=== PATIENT | female | born 1955 | race Caucasian/White ===

== ENCOUNTER 2024-01-09 11:49 | Emergency (ER) | payer MEDICARE, OTHER, SELFPAY ==
[2024-01-09 11:53] VITALS: BP 141/90; PULSE 81; TEMP 36.7; O2SAT 97; BMI 29.5
--- NOTE | 2024-01-09 13:09 | ED.GENADUL1 ---
HPI HPI - General Adult General Chief complaint: Eye Problems Stated complaint: BLURRED VISION Time Seen by Provider: 01/09/24 13:00 Source: patient Mode of arrival: walk-in Limitations: no limitations History of Present Illness HPI narrative: Patient is having left eye visual changes seeing squiggly lines, intermittent black floaters and black spots. No loss of vision, no pain to the left eye. No headache. No strokelike signs or symptoms. Patient symptoms started around 1:30 PM yesterday while she was at a [employer]. Patient denies any type of trauma. Patient has mild headache. No chest pain, shortness of breath, nausea, vomiting, no other strokelike signs or symptoms. All systems are negative except as noted/marked. All systems reviewed and otherwise negative. Nurses note and vital signs reviewed and patient is not hypoxic. General: The patient appears well and in no apparent distress. Patient is resting comfortably on cart. Patient is not toxic, lethargic, or listless Skin: Warm, dry, no pallor noted. There is no rash noted. No petechiae, purpura. Head: Normocephalic, atraumatic; Patient has no midline or paracervical tenderness to palpation.Patient has no tenderness to palpation to bilateral frontal maxillary sinus. Eye: Normal conjunctiva, no drainage, EOMI. PERRL. Patient had her right eye covered, and patient states that she is seeing squiggly lines in different spots and small floaters with the left eye, patient has no acute visual field defect to the top or bottom or any other quadrant. With her left eye covered, patient has normal vision to the right eye, no vision changes.Patient has no loss of vision, blurred vision, or double vision. Ears, Nose, Mouth, and Throat: oral mucosa is moist. Nares patent. Mouth without vesicles. Cardiovascular: Regular Rate and Rhythm, no murmur, gallop, rub Respiratory: Patient is in no distress, no accessory muscle use, lungs are clear to auscultation, no wheezing, rales or rhonchi Back: non-tender, GI: no tenderness Musculoskeletal: Patient has full range of motion of all of the extremities, no motor, sensory, or focal neurological deficits Neurological: A&O x4, normal speech. NIH 0 Psychiatric: Cooperative Related Data Allergies Allergy/AdvReac Type Severity Reaction Status Date / Time No Known Drug Allergies Allergy Verified 01/09/24 11:53 Opioid HPI Opioid Management Most Recent Opioid Data: No Data to Display Exam Constitutional Vital Signs, click to edit/add: Last Vital Signs Temp 98.0 F 01/09/24 11:53 Pulse 81 01/09/24 11:53 Resp 17 01/09/24 11:53 BP 141/90 01/09/24 11:53 Pulse Ox 97 01/09/24 11:53 O2 Del Method Room Air 01/09/24 11:53 Course Vital Signs Vital signs: Vital Signs Temperature 98.0 F 01/09/24 11:53 Pulse Rate 81 01/09/24 11:53 Respiratory Rate 17 01/09/24 11:53 Blood Pressure 141/90 01/09/24 11:53 Pulse Oximetry 97 01/09/24 11:53 Oxygen Delivery Method Room Air 01/09/24 11:53 Temperature 98.0 F 01/09/24 11:53 Pulse Rate 81 01/09/24 11:53 Respiratory Rate 17 01/09/24 11:53 Blood Pressure 141/90 01/09/24 11:53 Pulse Oximetry 97 01/09/24 11:53 Oxygen Delivery Method Room Air 01/09/24 11:53 Medical Decision Making MDM Narrative Medical decision making narrative: We have spent 1.5 hours calling several different physicians during the lunch hour between 12 and 1:30 PM. Patient is able to see the [facility] [place] in [facility] at 145 appointment.Patient will be discharged and the eye physician is happy to see and evaluate the patient for thorough testing. No acute ER testing is needed at this time. No strokelike signs or symptoms. No acute signs of any type of central artery, central vein, or any other acute abnormalities at this time. Patient will be seen evaluated by physician and be referred to specialist if needed. Patient understands this, very thankful for help in time. is at bedside. Patient is initially from the local area, she currently lives in [place] but is very familiar with the area and will go directly to the eye physician.. Address and information has been given to the patient Discharge Plan Discharge Stand Alone Forms: Portal Instructions Chief Complaint: Eye Problems Clinical Impression: Vision changes Patient Disposition: Home, Self-Care Time of Disposition Decision: 13:09 Condition: Fair Print Language: Belarusian Instructions: Blurred Vision (ED) Additional Instructions: Go directly to the [facility] in [place]. They will see you in the office now. Referrals: Physician,Non-Staff, MD [Primary Care Provider] - 1 week Discharge Date/Time: 01/09/24 13:11
== END 2024-01-09 13:11 | disposition home or self-care (01) ==
PROVIDERS: Emergency Provider Emergency Medicine
DX: H53.8 Other visual disturbances (principal)
CPT/HCPCS: 99283